=== PATIENT | male | born 1980 | race Caucasian/White ===

== ENCOUNTER 2021-08-18 20:55 | Emergency (ER) | payer OTHER ==
[~2021-08-18] VITALS: Ht 180.3 cm; Wt 113.4 kg
[2021-08-19 07:48] VITALS: BP 148/99
== END 2021-08-18 22:30 | disposition home or self-care (01) ==
LOC: ER 20:55
DX: R60.0 Localized edema (principal); J45.909 Unspecified asthma, uncomplicated; F17.210 Nicotine dependence, cigarettes, uncomplicated